=== PATIENT | male | born 1995 | race American Indian/Alaskan Native ===

== ENCOUNTER 2016-05-16 12:45 | Emergency (ER) | payer OTHER ==
[2016-05-16 14:43] LABS: Basophils % (Auto) 0.7 % (0.0-1.8); Eosinophils % (Auto) 6.5 % (0.0-4.3); Hematocrit 45.4 % (35.5-45.6); Mean Corpuscular HGB Conc 33 % (32-34); Mean Corpuscular Hemoglobin 31 pg (28-32); Mean Corpuscular Volume 94 fl (84-94); Platelet Count 160 K/mm3 (140-440); Red Blood Count 4.81 M/mm3 (3.65-5.03); Red Cell Distribution Width 11.7 % (13.2-15.2); White Blood Count 9.2 K/mm3 (4.5-11.0)
[2016-05-16 14:55] LABS: INR 1.07 (0.87-1.13)
[2016-05-16 14:56] LABS: Partial Thromboplastin Time 32.6 Sec. (24.2-36.6)
[2016-05-16 15:02] LABS: Alanine Aminotransferase 15 units/L (7-56); Albumin 4.3 g/dL (3.9-5); Albumin/Globulin Ratio 1.3 %; Alkaline Phosphatase 89 units/L (35-129); Anion Gap 19 mmol/L; BUN/Creatinine Ratio 9.09; Bilirubin,Total 0.6 mg/dL (0.1-1.2); Blood Urea Nitrogen 10 mg/dL (9-20); Calcium 9.1 mg/dL (8.4-10.2); Carbon Dioxide 28 mmol/L (22-30); Chloride 99.5 mmol/L (98-107); Glucose 72 mg/dL (75-100); Lipase 18 units/L (13-60); Potassium 4.3 mmol/L (3.6-5.0); Sodium 142 mmol/L (137-145); Total Protein 7.5 g/dL (6.3-8.2)
[2016-05-16 15:32] LABS: Bacteria,Urine 1+ /HPF (Negative); Bilirubin,Urine NEG (Negative); Blood,Urine NEG (Negative); Ketones,Urine NEG (Negative); Leukocyte Esterase,Urine NEG (Negative); Mucus,Urine FEW /HPF; Nitrite,Urine NEG (Negative); Protein,Urine <15 mg/dL mg/dL (Negative); Urobilinogen,Urine < 2.0 mg/dL (<2.0)
--- NOTE | 2016-05-16 20:41 | Emergency Department Report ---
HPI - General Chief Complaint: Nosebleed Time Seen by Provider: 05/16/16 20:27 - HPI HPI: Room 3 Is 20-year-old male presenting with a chief complaint of epistaxis. The patient states his symptoms began 5 days ago with a cough and "cold" symptoms. The patient states last night he developed epistaxis from the left naris. The patient states he then developed a cough with hemoptysis. The patient states his epistaxis was intermittent and this morning it returned and he had episode of nausea vomiting and no sick cold blood in the vomitus. Patient states since this morning his had intermittent right lower quadrant abdominal pain. Location: Nose, abdomen Duration: [see above] Quality: Pain Severity: Moderate Modifying factors: [see above] Context: [see above] Mode of transportation: [not driving] ED Past Medical Hx - Past Medical History Previous Medical History?: No Additional medical history: Hyperglycemia - Surgical History Past Surgical History?: No - Family History Family history: no significant - Social History Smoking Status: Current Every Day Smoker (2 packs per day) Substance Use Type: None - Medications Home Medications: Home Medications Medication Instructions Recorded Confirmed Last Taken Type Oxymetazoline 0.05% [Afrin] 2 spray NS BID PRN #1 bottle 05/16/16 Unknown Rx traMADol [Ultram] 50 mg PO Q6HR PRN #10 tablet 05/16/16 Unknown Rx ED Review of Systems ROS: Stated complaint: NOSE BLEED Other details as noted in HPI Comment: All other systems reviewed and negative Constitutional: fever Eyes: denies: eye pain, eye discharge, vision change ENT: epistaxis Respiratory: cough. denies: shortness of breath, wheezing Cardiovascular: denies: chest pain, palpitations Endocrine: no symptoms reported Gastrointestinal: nausea, vomiting, hematemesis Genitourinary: denies: urgency, dysuria Musculoskeletal: denies: back pain, joint swelling, arthralgia Skin: denies: rash, lesions Neurological: denies: headache, weakness, paresthesias Psychiatric: denies: anxiety, depression Hematological/Lymphatic: denies: easy bleeding, easy bruising Physical Exam - Physical Exam Vital Signs: Vital Signs 05/16/16 13:46 Temperature 98.7 F Pulse Rate 72 Respiratory 18 Rate Blood Pressure 125/83 O2 Sat by Pulse 100 Oximetry Physical Exam: GENERAL: The patient is well-developed well-nourished O Henrik stretcher not appearing to be in acute distress. [] HEENT: Normocephalic. Atraumatic. Extraocular motions are intact. Patient has moist mucous membranes. Left naris reveals friable membrane overlying Hesselbach's plexus NECK: Supple. No meningitic signs are noted. There is no adenopathy noted. CHEST/LUNGS: Clear to auscultation. There is no respiratory distress noted. HEART/CARDIOVASCULAR: Regular. There is no tachycardia. There is no gallop rub or murmur. ABDOMEN: Abdomen is soft, with tenderness to palpation in the right upper and right lower quadrant. Patient has normal bowel sounds. There is no abdominal distention. SKIN: There is no rash. There is no edema. There is no diaphoresis. NEURO: The patient is awake, alert, and oriented. The patient is cooperative. The patient has normal speech MUSCULOSKELETAL: There is no evidence of acute injury. ED Course Vital Signs 05/16/16 13:46 Temperature 98.7 F Pulse Rate 72 Respiratory 18 Rate Blood Pressure 125/83 O2 Sat by Pulse 100 Oximetry ED Medical Decision Making - Lab Data Result diagrams: 05/16/16 14:29 05/16/16 14:29 Laboratory Tests 05/16/16 05/16/16 05/16/16 14:29 14:29 14:29 WBC 9.2 RBC 4.81 Hgb 15.0 Hct 45.4 MCV 94 MCH 31 MCHC 33 RDW 11.7 L Plt Count 160 Lymph % (Auto) 17.7 Canadian % (Auto) 11.7 H Eos % (Auto) 6.5 H Baso % (Auto) 0.7 Lymph # 1.6 Canadian # 1.1 H Eos # 0.6 H Baso # 0.1 Seg Neutrophils % 63.4 Seg Neutrophils # 5.8 PT 13.8 INR 1.07 APTT 32.6 Sodium 142 Potassium 4.3 Chloride 99.5 Carbon Dioxide 28 Anion Gap 19 BUN 10 Creatinine 1.1 Estimated GFR > 60 BUN/Creatinine Ratio 9.09 Glucose 72 L Calcium 9.1 Total Bilirubin 0.6 AST 25 ALT 15 Alkaline Phosphatase 89 Total Protein 7.5 Albumin 4.3 Albumin/Globulin Ratio 1.3 Lipase 18 Urine Color Urine Turbidity Urine pH Ur Specific [place] Urine Protein Urine Glucose (UA) Urine Ketones Urine Blood Urine Nitrite Urine Bilirubin Urine Urobilinogen Ur Leukocyte Esterase Urine WBC (Auto) Urine RBC (Auto) U Epithel Cells (Auto) Urine Bacteria (Auto) Amorphous Crystals Urine Mucus 05/16/16 14:43 WBC RBC Hgb Hct MCV MCH MCHC RDW Plt Count Lymph % (Auto) Canadian % (Auto) Eos % (Auto) Baso % (Auto) Lymph # Canadian # Eos # Baso # Seg Neutrophils % Seg Neutrophils # PT INR APTT Sodium Potassium Chloride Carbon Dioxide Anion Gap BUN Creatinine Estimated GFR BUN/Creatinine Ratio Glucose Calcium Total Bilirubin AST ALT Alkaline Phosphatase Total Protein Albumin Albumin/Globulin Ratio Lipase Urine Color Mary Urine Turbidity Cloudy Urine pH 7.0 Ur Specific [place] 1.029 Urine Protein <15 mg/dl Urine Glucose (UA) Neg Urine Ketones Neg Urine Blood Neg Urine Nitrite Neg Urine Bilirubin Neg Urine Urobilinogen < 2.0 Ur Leukocyte Esterase Neg Urine WBC (Auto) 5.0 Urine RBC (Auto) 5.0 U Epithel Cells (Auto) 1.0 Urine Bacteria (Auto) 1+ Amorphous Crystals 1+ Urine Mucus Few - Radiology Data Radiology results: report reviewed (CT abdomen and pelvis), image reviewed (CT abdomen and pelvis) CT abdomen and pelvis (read by radiologist)-no bowel obstruction or acute inflammatory process. - Differential Diagnosis epistaxis, URI, appendicitis Critical care attestation.: If time is entered above; I have spent that time in minutes in the direct care of this critically ill patient, excluding procedure time. ED Disposition Clinical Impression: Epistaxis, Abdominal pain, URI, acute Disposition: DISCHARGED TO HOME OR SELFCARE Is pt being admited?: No Does the pt Need Aspirin: No Condition: Stable Instructions: Epistaxis (ED), Upper Respiratory Infection (ED), Acute Abdominal Pain (ED) Additional Instructions: Return to the emergency department immediately should you develop worsening symptoms, fever, inability to tolerate food or liquid or any other concerns. Prescriptions: Oxymetazoline 0.05% [Afrin] 2 spray NS BID PRN #1 bottle PRN Reason: nosebleed traMADol [Ultram] 50 mg PO Q6HR PRN #10 tablet PRN Reason: Pain Referrals: PRIMARY CARE, [Primary Care Provider] - 3-5 Days FLORENCE HAM MD [Staff Physician] - 3-5 Days (Dr. Ham is an irrigation flume layer. Please follow up with her for further evaluation of your nosebleeds) Time of Disposition: 21:59
[2016-05-16] MEDS ORDERED: NACL ONE (20:43)
--- NOTE | 2016-05-16 21:51 | Cat Scan Report ---
FINAL REPORT PROCEDURE: CT ABDOMEN PELVIS W CON TECHNIQUE: Computerized axial tomography of the abdomen and pelvis was performed after the IV injection of iodinated nonionic contrast. HISTORY: right lower quadrant tenderness COMPARISON: No prior studies are available for comparison. FINDINGS: Visualized lower thorax: No significant abnormality. Liver: Normal size and attenuation. Spleen: Normal size and attenuation. Gallbladder and biliary system: Normal. Pancreas: Normal. Adrenals: Normal. Kidneys: 9 millimeter right renal cyst. GI tract: The visualized portions of the appendix are normal in caliber. No periappendiceal inflammation is seen. No evidence of bowel obstruction or acute inflammation. Lymph nodes and mesentery: Normal. Vasculature: Normal. Bladder: Normal. Reproductive organs: Normal. Peritoneum: No free fluid. Musculoskeletal structures: No acute fracture is seen. No focal osseous lesions are identified. Other: None. IMPRESSION: No bowel obstruction or acute inflammatory process.
[2016-05-16 22:52] VITALS: BP 130/76
== END 2016-05-16 22:30 | disposition home or self-care (01) ==
LOC: ED 12:45
DX: R04.0 Epistaxis (principal); J06.9 Acute upper respiratory infection, unspecified; R10.11 Right upper quadrant pain; R10.31 Right lower quadrant pain; F17.200 Nicotine dependence, unspecified, uncomplicated
CPT/HCPCS: 36415; 74177; 80053; 81001; 83690; 85025; 85610; 85730; 99284; Q9967

== ENCOUNTER 2016-09-07 14:27 | Emergency (ER) | payer SELFPAY ==
[2016-09-07] MEDS ORDERED: NORCO 5/325 PO ONE (19:15)
[2016-09-07] MEDS ORDERED: BOOSTRIX IM ONE (19:15)
[2016-09-07] MEDS ORDERED: ZOFRAN ODT PO ONE (19:16)
[2016-09-07] MEDS ORDERED: XYLOCAINE 2%/EPI 1:100,000 INFILTRATI ONE (19:16)
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
[2016-09-07] MEDS ORDERED: XYLOCAINE 1%/ EPI 1:100,000 INFILTRATI NR ×2 (20:00→22:00)
[2016-09-07] MEDS ORDERED: TRIPLE ANTIBIOTIC TP ONE ×2 (20:55→20:56)
[2016-09-07 21:27] VITALS: BP 130/82
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
== END 2016-09-07 21:15 | disposition home or self-care (01) ==
LOC: ED 14:27
DX: S61.511A Laceration without foreign body of right wrist, initial encounter (principal); E11.9 Type 2 diabetes mellitus without complications; F17.200 Nicotine dependence, unspecified, uncomplicated; W25.XXXA Contact with sharp glass, initial encounter; Y93.89 Activity, other specified; Y99.9 Unspecified external cause status; Y92.89 Other specified places as the place of occurrence of the external cause
CPT/HCPCS: 90471; 90715; A6250; Q0162